=== PATIENT | male | born 1985 | race Two or more races ===

== ENCOUNTER 2022-12-12 13:56 | Emergency (ER) | payer OTHER ==
[~2022-12-12] VITALS: Ht 165.1 cm; Wt 83.5 kg
[2022-12-12 14:05] VITALS: BP 130/95
[2022-12-12] MEDS ORDERED: ceFAZolin 1GM/50ML 50 ML IV ONE (16:15)
[2022-12-12] MEDS ORDERED: MORPHINE SULFATE 4 MG/ML SYR/VIAL IV ONE (16:15)
[2022-12-12] MEDS ORDERED: ONDANSETRON HCL 4 MG/2 ML VIAL IV ONE (16:15)
== END 2022-12-12 17:58 | disposition left against medical advice (07) ==
LOC: ER 13:56
DX: S51.812A Laceration without foreign body of left forearm, initial encounter (principal); W27.0XXA Contact with workbench tool, initial encounter; Y93.89 Activity, other specified; Y92.89 Other specified places as the place of occurrence of the external cause; Y99.8 Other external cause status
CPT/HCPCS: 73090; 99283; J0690